=== PATIENT | female | born 2005 | race Caucasian/White ===

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

== ENCOUNTER 2025-06-26 18:10 | Emergency (ER) | payer MEDICAID, OTHER ==
[2025-06-26 19:17] LABS: APPEARANCE,URINE CLEAR (Clear); GLUCOSE,URINE NEGATIVE (Negative); OCCULT BLOOD,URINE NEGATIVE (Negative)
== END 2025-06-26 20:35 | disposition home or self-care (01) ==
LOC: JD.ED 18:10
DX: M54.41 Lumbago with sciatica, right side (principal); M54.42 Lumbago with sciatica, left side; F17.200 Nicotine dependence, unspecified, uncomplicated; Z86.16 Personal history of COVID-19
CPT/HCPCS: 74176; 81003; 81025; 99284; A9270